=== PATIENT | female | born 1965 | race Caucasian/White ===

== ENCOUNTER 2024-03-25 12:47 | Emergency (ER) | payer SELFPAY ==
[2024-03-25 12:51] VITALS: BP 138/79; PULSE 79; TEMP 36.8; O2SAT 100; BMI 22.6
--- NOTE | 2024-03-25 12:58 | XR_ITS ---
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 FINDINGS: LUNGS: No significant pulmonary parenchymal abnormalities. VASCULATURE: No increased pulmonary vasculature. PLEURA: No pneumothorax, effusion, or pleural thickening. CARDIAC: No cardiomegaly or cardiac silhouette abnormality. MEDIASTINUM: No visible mass or adenopathy. BONES: No fracture or visible bone lesion. OTHER: Negative. XR/XR chest 1V IMPRESSION: 1. No acute cardiopulmonary process. Electronically authenticated by: CAMELIA MASTERSON Date: 03/25/2024 13:29
--- NOTE | 2024-03-25 13:07 | ED.CHESTPAI1 ---
HPI - Chest Pain General Chief Complaint: Chest Pain Stated Complaint: PAIN IN CHEST WHEN TAKING DEEP BREATH Time Seen by Provider: 03/25/24 12:49 Source: patient Mode of arrival: walk-in Limitations: no limitations History of Present Illness HPI narrative: 58-year-old female presented to the emergency department for a chief complaint of chest pain. She was reaching up with her right arm and felt a sudden onset of pain in the sternal area. She did not fall and nothing hit her in her chest. The pain is not lateral but rather over the sternum. It is worse when she breathes in deeply. She has no history of lung disease or heart disease. It happened shortly before coming into the emergency department. Related Data Home Medications ?Medication ?Instructions ?Recorded ?Confirmed desvenlafaxine 50 mg 50 mg PO DAILY 03/25/24 03/25/24 tablet,extended release 24 hr Allergies Allergy/AdvReac Type Severity Reaction Status Date / Time No Known Drug Allergies Allergy Verified 03/25/24 12:55 Review of Systems ROS Narrative A ten point review of systems is negative except as noted above. Exam Narrative Exam Narrative: Nurses note and vital signs reviewed and patient is not hypoxic. General: The patient appears well and in no apparent distress. Patient is resting comfortably on cart. Skin: Warm, dry, no pallor noted. There is no rash noted. Head: Normocephalic, atraumatic Eye: Normal conjunctiva, no drainage Ears, Nose, Mouth, and Throat: oral mucosa is moist. Nares patent. Cardiovascular: Regular Rate and Rhythm Respiratory: Patient is in no distress, no accessory muscle use, lungs are clear to auscultation, no wheezing, rales or rhonchi. Breath sounds are equal Back: non-tender GI: Soft and nontender Musculoskeletal: The patient has no evidence of calf tenderness, no pitting edema, symmetrical pulses noted bilaterally Neurological: A&O, normal speech Psychiatric: Cooperative Constitutional Vital Signs, click to edit/add: Last Vital Signs Temp 98.2 F 03/25/24 12:51 Pulse 79 03/25/24 12:51 Resp 16 03/25/24 12:51 BP 138/79 03/25/24 12:51 Pulse Ox 100 03/25/24 12:51 O2 Del Method Room Air 03/25/24 12:51 Course Vital Signs Vital signs: Vital Signs Temperature 98.2 F 03/25/24 12:51 Pulse Rate 79 03/25/24 12:51 Respiratory Rate 16 03/25/24 12:51 Blood Pressure 138/79 03/25/24 12:51 Pulse Oximetry 100 03/25/24 12:51 Oxygen Delivery Method Room Air 03/25/24 12:51 Temperature 98.2 F 03/25/24 12:51 Pulse Rate 79 03/25/24 12:51 Respiratory Rate 16 03/25/24 12:51 Blood Pressure 138/79 03/25/24 12:51 Pulse Oximetry 100 03/25/24 12:51 Oxygen Delivery Method Room Air 03/25/24 12:51 MDM - Chest Pain MDM Narrative Medical decision making narrative: Her workup including 2 sets of troponin is negative. She felt much better after being given IV Toradol. When she was having her pain it was only present when she moved. There is no evidence of pneumothorax or heart disease and she is able to be discharged home. Treatment diagnosis and follow-up were discussed with the patient. Differential Diagnosis Differential diagnosis: Likely pneumothorax, unstable angina pectoris, atypical chest pain, st elevation myocardial infarction, chest pain and other (Chest wall pain) Lab Data Attestation: I reviewed the patient's lab results. Labs: Lab Results 03/25/24 03/25/24 Range/Units 13:24 14:08 WBC 4.4 (4.0-11.0) 10^3/uL RBC 3.90 L (4.20-5.40) 10^6/uL Hgb 10.7 L (12.0-16.0) g/dL Hct 35.6 L (36.0-48.0) % MCV 91.3 (81.0-99.0) fL MCH 27.4 (26.7-34.0) pg MCHC 30.1 (29.9-35.2) g/dL RDW 14.4 (11.0-15.0) % Plt Count 213 (150-450) 10^3/uL MPV 10.2 (9.5-13.5) fL Neut % (Auto) 64.5 (43.0-75.0) % Lymph % (Auto) 25.3 (20.5-60.0) % [place] % (Auto) 8.1 (1.7-12.0) % Eos % (Auto) 1.1 (0.9-7.0) % Baso % (Auto) 0.5 (0.2-2.0) % Neut # (Auto) 2.9 (1.4-6.5) 10^3/uL Lymph # (Auto) 1.1 L (1.2-3.8) 10^3/uL [place] # (Auto) 0.4 (0.3-0.8) 10^3/uL Eos # (Auto) 0.1 (0.0-0.7) 10^3/uL Baso # (Auto) 0.0 (0.0-0.1) 10^3/uL Abs Immat Gran (auto) 0.02 (0.00-0.03) 10^3/uL Imm/Tot Granulo (auto) 0.5 (0.0-0.5) % Sodium 142 (136-145) mmol/L Potassium 4.1 (3.5-5.1) mmol/L Chloride 107 (98-107) mmol/L Carbon Dioxide 26.5 (21.0-32.0) mmol/L Anion Gap 12.6 BUN 16.0 (7.0-18.0) mg/dL Creatinine 0.51 L (0.55-1.02) mg/dL Est GFR ( Amer) >60 (>=60) Est GFR (Non-Af Amer) >60 (>=60) BUN/Creatinine Ratio 31.4 Glucose 93 (74-106) mg/dL Calcium 8.4 L (8.5-10.1) mg/dL Troponin I High Sens <4.0 L <4.0 L (4.0-51.3) pg/mL ECG Data Attestation: I personally reviewed and interpreted this ECG as follows: (EKG on my interpretation shows sinus rhythm with a rate of 72) Heart Score History: Slightly/Non-Suspicious ECG: Normal Age: >65 years Risk Factors: 1 or 2 Risk Factors Troponin: <Normal Limit Total Heart Score Recommendations & Risks:: 3 Discharge Plan Discharge Stand Alone Forms: Work/School Release, Portal Instructions Chief Complaint: Chest Pain Clinical Impression: Chest wall pain Patient Disposition: Home, Self-Care Time of Disposition Decision: 14:52 Condition: Good Mode of Transportation: Private Vehicle Prescriptions / Home Meds: No Action desvenlafaxine 50 mg tablet extended release 24 hr 50 mg PO DAILY Print Language: Nepali Instructions: Chest Wall Pain (ED) Referrals: DEV MASON MD [Primary Care Provider] - 1 week
--- NOTE | 2024-03-25 13:10 | ECG_ITS ---
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
[2024-03-25 13:29] LABS: Basophils Percent Auto 0.5 % (0.2-2.0); Eosinophils Absolute Auto 0.1 10^3/uL (0.0-0.7); Eosinophils Percent Auto 1.1 % (0.9-7.0); Hematocrit 35.6 % (36.0-48.0); Hemoglobin 10.7 g/dL (12.0-16.0); Immature Granulocytes Abs Auto 0.02 10^3/uL (0.00-0.03); Immature Granulocytes Pct Auto 0.5 % (0.0-0.5); Lymphocytes Absolute Auto 1.1 10^3/uL (1.2-3.8); Lymphocytes Percent Auto 25.3 % (20.5-60.0); Mean Corpuscular HGB Conc 30.1 g/dL (29.9-35.2); Mean Corpuscular Hemoglobin 27.4 pg (26.7-34.0); Mean Corpuscular Volume 91.3 fL (81.0-99.0); Mean Platelet Volume 10.2 fL (9.5-13.5); Monocytes Absolute Auto 0.4 10^3/uL (0.3-0.8); Monocytes Percent Auto 8.1 % (1.7-12.0); Neutrophils Absolute Auto 2.9 10^3/uL (1.4-6.5); Neutrophils Percent Auto 64.5 % (43.0-75.0); Platelet Count 213 10^3/uL (150-450); Red Cell Distribution Width 14.4 % (11.0-15.0); White Blood Count 4.4 10^3/uL (4.0-11.0)
[2024-03-25 13:35] VITALS: PULSE 80
[2024-03-25 13:46] LABS: Anion Gap 12.6; BUN Creatinine Ratio 31.4; Calcium 8.4 mg/dL (8.5-10.1); Carbon Dioxide 26.5 mmol/L (21.0-32.0); Chloride 107 mmol/L (98-107); Estimated GFR (African America >60 (>=60); Estimated GFR (Non-African Ame >60 (>=60); Glucose 93 mg/dL (74-106); Potassium 4.1 mmol/L (3.5-5.1); Sodium 142 mmol/L (136-145); Troponin I High Sensitivity <4.0 pg/mL (4.0-51.3)
[2024-03-25] MEDS: KETOROLAC TROMETHAMINE 30 MG/ML VIAL IVP (13:59)
[2024-03-25 14:35] LABS: Troponin I High Sensitivity <4.0 pg/mL (4.0-51.3)
[2024-03-25 15:10] VITALS: BP 160/65; PULSE 77; O2SAT 97
== END 2024-03-25 15:12 | disposition home or self-care (01) ==
PROVIDERS: Emergency Provider Emergency Medicine; PCP Internal Medicine
DX: R07.89 Other chest pain (principal)
CPT/HCPCS: 36415; 71045; 80048; 84484; 85025; 93005; 96374; 99285; J1885